=== PATIENT | male | born 1980 | race Caucasian/White ===

== ENCOUNTER → 2016-10-13 | Outpatient (CLI) | payer BC | LOC: KOH-I 16:08 | DX: M25.512 Pain in left shoulder (principal) | CPT/HCPCS: 73030 ==

== ENCOUNTER → 2021-04-04 | Outpatient (CLI) | payer OTHER | LOC: KOH-I 09:49 | DX: R10.11 Right upper quadrant pain (principal); K76.0 Fatty (change of) liver, not elsewhere classified | CPT/HCPCS: 76705 ==

== ENCOUNTER → 2021-05-24 | Outpatient (CLI) | payer OTHER | LOC: KOH-I 11:00 | DX: N50.811 Right testicular pain (principal); N50.812 Left testicular pain | CPT/HCPCS: 76870 ==